=== PATIENT | female | born 1995 | race Caucasian/White ===

== ENCOUNTER 2023-01-04 18:38 | Outpatient (CLI) | payer MEDICAID | END 2023-01-04 18:39 | disposition critical access hospital (66) | LOC: EMS 18:38 | DX: F10.129 Alcohol abuse with intoxication, unspecified (principal); R45.1 Restlessness and agitation; R46.89 Other symptoms and signs involving appearance and behavior | CPT/HCPCS: A0425; A0429; A0999 ==

== ENCOUNTER 2023-01-04 19:05 | Emergency (ER) | payer MEDICAID ==
--- NOTE | 2023-01-04 19:18 | ED Physician Documentation ---
History of Present Illness - Stated complaint Stated Complaint: ETOH - History obtained from History obtained from: Patient, EMS - Additonal information Additional information: 27-year-old woman with history of alcoholism presents by ambulance from detox as she was too drunk to complete the intake. Patient has no complaints other than "I want to go back." PD PAST MEDICAL HISTORY - Present Medications Home Medications: Ambulatory Orders Medication Instructions Recorded Confirmed No Known Home Medications 01/04/23 01/04/23 - Allergies Allergies/Adverse Reactions: Allergies Allergy/AdvReac Type Severity Reaction Status Date / Time No Known Drug Allergies Allergy Verified 01/04/23 19:36 PD ED PE NORMAL - Vitals Vital signs reviewed: Yes - General General: Other (Sleepy and intoxicated with nystagmus in no distress.) - HEENT HEENT: PERRL - Cardiac Cardiac: RRR, No murmur - Respiratory Respiratory: No respiratory distress, Clear bilaterally - Abdomen Abdomen: Non tender - Neuro Eye Opening: To Voice Motor: Obeys Commands Verbal: Confused GCS Score: 13 - Psych Psych: Normal mood, Normal affect Results - Vitals Vitals: Vital Signs - 24 hr 01/04/23 19:07 Temperature 36.1 C L Heart Rate 80 Respiratory 16 Rate Blood Pressure 105/68 O2 Saturation 100 Oxygen O2 Source Room air - EKG (time done) 2015 EKG releavant findings:: EKG personally interpreted by author of this note. Relevant findings are: Rate: Rate (enter#) (79) Rhythm: NSR [place]: Normal Intervals: Normal SC QRS: Normal Ischemia: Normal ST segments - Labs Labs: Laboratory Tests 01/04/23 01/04/23 01/04/23 19:12 19:22 19:22 WBC 6.4 RBC 4.42 Hgb 13.8 Hct 41.9 MCV 94.8 MCH 31.2 H MCHC 32.9 RDW 12.7 Plt Count 227 MPV 9.6 Neut # (Auto) 4.4 Lymph # (Auto) 1.7 Stone # (Auto) 0.3 Eos # (Auto) 0.0 Baso # (Auto) 0.0 Absolute Nucleated RBC 0.00 Nucleated RBC % 0.0 Sodium 142 Potassium 3.9 Chloride 106 Carbon Dioxide 30 Anion Gap 6.0 BUN 13 Creatinine 0.8 Estimated GFR (MDRD) 87 L Glucose 86 Calcium 9.7 Magnesium 1.9 Total Bilirubin 0.3 AST 18 ALT 18 Alkaline Phosphatase 99 Total Creatine Kinase 121 Total Protein 7.9 Albumin 4.8 Globulin 3.1 Albumin/Globulin Ratio 1.5 Lipase 17 TSH 0.52 Urine Color YELLOW Urine Clarity CLEAR Urine pH 5.5 Ur Specific [place] 1.010 Urine Protein NEGATIVE Urine Glucose (UA) NEGATIVE Urine Ketones NEGATIVE Urine Occult Blood MODERATE H Urine Nitrite NEGATIVE Urine Bilirubin NEGATIVE Urine Urobilinogen 0.2 (NORMAL) Ur Leukocyte Esterase NEGATIVE Urine RBC 0-5 Urine WBC 0-3 Ur Squamous Epith Cells FEW Squamous Urine Bacteria Rare Ur Microscopic Review INDICATED Urine Culture Comments NOT INDICATED Salicylates < 1.5 Urine Opiates Screen NEGATIVE Ur Oxycodone Screen NEGATIVE Urine Methadone Screen NEGATIVE Ur Propoxyphene Screen NEGATIVE Acetaminophen < 0.1 Ur Barbiturates Screen NEGATIVE Ur Tricyclics Screen NEGATIVE Ur Phencyclidine Scrn NEGATIVE Ur Amphetamine Screen NEGATIVE U Methamphetamines Scrn NEGATIVE U Benzodiazepines Scrn NEGATIVE Urine Cocaine Screen NEGATIVE U Cannabinoids Screen NEGATIVE Ethyl Alcohol 185.6 PD Medical Decision Making - ED course ED course: 27-year-old woman went to detox today and was too intoxicated to tolerate the intake process. She was sobered up for a few hours here and on reexamination at 8:30 PM still slightly slurred speech but normal gait, alert and oriented and cooperative. No more somnolence. Work-up in the emergency department consisted of normal CBC, CMP, TSH, unremarkable urine, negative drug screen, alcohol positive at 185. Prior to discharge she became agitated by the wait to go back to detox. She briefly ran out of the ambulance bay doors but then came back and so did not fully elope. She was agreeable to some medications for her anxiety and Zyprexa and Ativan were orally dosed. Subsequent getting were notified by [facility] that they would not be able to take her back because of her behaviors here. This was relayed to the patient which she did not tolerate well. She seems to have some significant coping issues Departure - Departure Disposition: 01 Home, Self Care Clinical Impression: Alcohol intoxication Qualifiers: Complication of substance-induced condition: with delirium Qualified Code(s): F10.921 - Alcohol use, unspecified with intoxication delirium Condition: Good Record reviewed to determine appropriate education?: Yes Instructions: ED Alcohol Intoxication Comments: Unfortunately because of your behavior tonight the detox facility here will no longer take you back. Call your doctor to arrange a follow-up appointment, make the next available appointment. In the interim, return anytime if worse or if new symptoms develop.
[2023-01-04 19:27] LABS: BASOPHILS % (AUTO) 0.5 %; EOSINOPHILS % (AUTO) 0.5 %; HCT - HEMATOCRIT 41.9 % (37.0-47.0); HGB - HEMOGLOBIN 13.8 g/dL (12.0-16.0); LYMPHOCYTES # (AUTO) 1.7 10^3/uL (1.5-3.5); MEAN CORPUSCULAR HEMOGLOBIN 31.2 pg (27.0-31.0); MEAN CORPUSCULAR HGB CONC 32.9 g/dL (32.0-36.0); MEAN CORPUSCULAR VOLUME 94.8 fL (81.0-99.0); MEAN PLATELET VOLUME 9.6 fL (7.9-10.8); MONOCYTES # (AUTO) 0.3 10^3/uL (0.0-1.0); MONOCYTES % (AUTO) 4.7 %; NEUTROPHILS # (AUTO) 4.4 10^3/uL (1.5-6.6); NEUTROPHILS % (AUTO) 68.1 %; PLT - PLATELET COUNT 227 10^3/uL (130-450); RED BLOOD COUNT 4.42 10^6/uL (4.20-5.40); RED CELL DISTRIBUTION WIDTH 12.7 % (12.0-15.0); WHITE BLOOD COUNT 6.4 x10^3/uL (4.8-10.8)
[2023-01-04 19:31] VITALS: BP 105/68; O2SAT 100
[2023-01-04 19:32] LABS: BILIRUBIN,URINE NEGATIVE (NEGATIVE); GLUCOSE, URINE (UA) NEGATIVE (NEGATIVE); KETONES,URINE (UA) NEGATIVE (NEGATIVE); LEUKOCYTE ESTERASE, URINE NEGATIVE (NEGATIVE); MUDS CUTOFF CONCENTRATIONS CUTOFF CONC BELOW:; NITRITE,URINE NEGATIVE (NEGATIVE); OCCULT BLOOD,URINE MODERATE (NEGATIVE); PH,URINE 5.5 PH (5.0-7.5); PROTEIN,URINE NEGATIVE (NEGATIVE); UROBILINOGEN,URINE 0.2 (NORMAL) E.U./dL (NORMAL)
[2023-01-04 19:33] LABS: CLARITY,URINE CLEAR (CLEAR)
[2023-01-04 19:42] LABS: RBC,URINE 0-5 /HPF (0-5); WBC,URINE 0-3 /HPF (0-5)
[2023-01-04 19:43] LABS: AMPHETAMINE SCREEN,URINE NEGATIVE (NEGATIVE); BACTERIA,URINE Rare /HPF (None Seen); BARBITURATE SCREEN,UR NEGATIVE (NEGATIVE); BENZODIAZEPINES SCREEN, URINE NEGATIVE (NEGATIVE); COCAINE SCREEN URINE NEGATIVE (NEGATIVE); METHADONE SCREEN, URINE NEGATIVE (NEGATIVE); METHAMPHETAMINES SCREEN, URINE NEGATIVE (NEGATIVE); OPIATE SCREEN, URINE NEGATIVE (NEGATIVE); OXYCODONE SCREEN, URINE NEGATIVE (NEGATIVE); PROPOXYPHENE SCREEN, URINE NEGATIVE (NEGATIVE); SQUAMOUS EPITHELIAL CELL,UR FEW Squamous (<= Few); THC CANNABINOID SCREEN, URINE NEGATIVE (NEGATIVE); TRICYCLIC ANTIDEPRESSANT,URINE NEGATIVE (NEGATIVE)
[2023-01-04 19:47] LABS: ALBUMIN 4.8 g/dL (3.2-5.5); ALBUMIN/GLOBULIN RATIO 1.5 (1.0-2.2); ALKALINE PHOSPHATASE 99 IU/L (42-121); ALT ALANINE AMINOTRANSFERASE 18 IU/L (10-60); AST ASPARTATE AMINOTRANSFERASE 18 IU/L (10-42); BILIRUBIN,TOTAL 0.3 mg/dL (0.2-1.0); BUN - BLOOD UREA NITROGEN 13 mg/dL (6-20); CALCIUM 9.7 mg/dL (8.5-10.3); CARBON DIOXIDE - CO2 30 mmol/L (21-32); CHLORIDE 106 mmol/L (101-111); CK- CREATINE KINASE 121 IU/L (30-223); CREATININE 0.8 mg/dL (0.6-1.3); ETOH - ETHANOL 185.6 mg/dL; GFR - MDRD 87 (>89); GLUCOSE 86 mg/dL (74-104); LIPASE 17 U/L (11-82); MAGNESIUM 1.9 mg/dL (1.7-2.3); POTASSIUM 3.9 mmol/L (3.5-4.5); SODIUM 142 mmol/L (135-145); TOTAL PROTEIN 7.9 g/dL (6.4-8.9)
[2023-01-04 19:49] LABS: ACETAMINOPHEN < 0.1 ug/mL; SALICYLATE < 1.5 mg/dL
[2023-01-04 19:56] LABS: THYROID STIMULATING HORMONE 0.52 uIU/mL (0.34-5.60)
[2023-01-04] MEDS ORDERED: LORazepam 1 MG TABLET PO STA (22:11)
[2023-01-04] MEDS ORDERED: OLANZapine ODT 5 MG TABLET TL ONE (22:11)
== END 2023-01-05 01:08 | disposition home or self-care (01) ==
LOC: ED 19:05
DX: F10.121 Alcohol abuse with intoxication delirium (principal); Y90.6 Blood alcohol level of 120-199 mg/100 ml
CPT/HCPCS: 36415; 80053; 80306; 80307; 80320; 80329; 81001; 82550; 83690; 83735; 84443; 85025; 93005; 99283; 99284; A9270; J8499; 81003; 87086